=== PATIENT | male | born 1970 | race Hispanic/Latino ===

== ENCOUNTER 2017-09-08 06:54 | Day surgery (SDC) | payer OTHER ==
[2017-09-07 12:04] VITALS: BMI 31.9
[~2017-09-08 06:54] MED LIST: FLU VACC QS2017-18 36 mo. & older 0.5 ML SYRINGE IM ONE
[2017-09-08 07:50] VITALS: BP 112/74; TEMP 97.1
--- NOTE | 2017-09-08 08:55 | RAD ---
LUMBAR MYELOGRAM: DATE: 09/08/17. COMPARISON: None. HISTORY: Remote fall and lumbar spine surgery with current complaints of persistent lob back pain. FINDINGS: [employer] imaging demonstrates bilateral L2, L3, L4, and L5 pedicle screws with vertically oriented inter locking rods. Metallic intervertebral disk device noted at L3-4 and L4-5. Multilevel bilateral laminectomy changes are noted at the postoperative levels. There is disk space narrowing with degenerative end plate change and anterior osteophyte formation at L2-3. Informed consent for lumbar spine myelogram was obtained prior to the procedure. The patient was placed on the fluoroscopic table in the prone position and the skin overlying the lum bar spine was prepped and draped in normal sterile fashion. The skin was anesthetized with 1% buffer ed Lidocaine at the L3-4 level. With intermittent fluoroscopic guidance, a 22-gauge spinal needle wa s advanced into the thecal sac and removal of stylette yields clear cerebrospinal fluid. Approximate ly 9 cc of iodinated contrast media was injected, outlining nerve roots of the cauda equina. The nee dle was removed. The patient tolerated the procedure well. The patient was sent to the CT scanner f or CT myelogram of the lumbar spine. IMPRESSION: Successful lumbar spine myelogram. CT myelogram lumbar spine to follow. POS: NAY
--- NOTE | 2017-09-08 09:51 | CT ---
CT MYELOGRAM OF THE LUMBAR SPINE: DATE: 09/08/17. HISTORY: Degenerative disk disease at L5-S1 level, prior history includes extensive lumbar spine surgery in ap proximately 2011. The patient reports persistent back pain. TECHNIQUE: Following the intrathecal administration of iodinated contrast media, serial axial CT imaging is obta ined at 2.5 mm intervals from lower thoracic spine through inferior aspect of the sacrum with coronal and sagittal reformatted imaging. 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 Five lumbar-type vertebral bodies are present. Conus medullaris terminates at the L1 level. There is no anterolisthesis or retrolisthesis noted within the lumbar spine. There are bilateral pedicle screws present at L2, L3, L4, and L5. There are vertically oriented inte rlocking rods present. There is an intervertebral disk device at the L3-4 and L4-5 level. There is mild retrolisthesis at L2-3 measuring approximately 4 mm. There is mature bone graft material associated with the vertically oriented interlocking rods bilater ally from the L2 through L5 levels. T12-L1: There is mild facet hypertrophy on the right with no significant central canal or neural for aminal stenosis. L1-2: There is bilateral facet hypertrophy, right greater than left. There is mild associated right neural foraminal stenosis. No significant central canal or left neural foraminal stenosis. L2-3: There is disk space narrowing with anterior osteophyte formation and minimal posterior osteoph yte. No significant central canal stenosis or neural foraminal stenosis. L3-4: There is mild bilateral facet hypertrophy. There is mild posterior osteophyte formation in th e right foraminal/right paracentral region which leads to a mild degree of right neural foraminal nat nosis. No significant central canal stenosis. Mild left neural foraminal stenosis on the basis of fa cet hypertrophy noted. L4-5: There is mild posterior osteophyte formation noted in the left paracentral region/left foramin al region. There is mild bilateral neural foraminal stenosis, left greater than right. No significa nt central canal stenosis. L5-S1: Bilateral facet hypertrophy is noted, right greater than left. There is osseous fragmentatio n involving the inferior articular facet of L5 on the right suggesting remote trauma. There is resul tant bilateral neural foraminal stenosis, moderate in severity, right grater than left. There is no significant central canal stenosis. There is evidence of prior bilateral angulation. There is evidence of prior bilateral laminectomy at the L3, L4, and L5 vertebral levels. There is no acute fracture or dislocation. There are no worrisome lytic or blastic bone lesions. IMPRESSION: Multilevel postoperative changes noted within the lumbar spine. There are areas of degenerative disk disease and facet hypertrophic change which result in areas of neural foraminal stenosis, most promi nent at L5-S1, right greater than left. There is no significant central canal stenosis. POS: [facility]
== END 2017-09-08 09:20 | disposition home or self-care (01) ==
LOC: RAD 06:54
PROVIDERS: ATTEND Neurological Surgery
PROC: B01BYZZ Fluoroscopy of Spinal Cord using Other Contrast (ICD-10-PCS; principal; 2017-09-08)
DX: M51.17 Intervertebral disc disorders with radiculopathy, lumbosacral region (principal); M47.26 Other spondylosis with radiculopathy, lumbar region; Z79.899 Other long term (current) drug therapy; Z98.1 Arthrodesis status; Z98.890 Other specified postprocedural states
CPT/HCPCS: 62304; 72132